=== PATIENT | male | born 1995 | race African-American/Black ===

== ENCOUNTER 2017-03-07 22:36 | Emergency (ER) | payer SELFPAY ==
[2017-03-07] MEDS ORDERED: AZITHROMYCIN 250 MG TABLET PO ONE (22:43)
[2017-03-07] MEDS ORDERED: LIDOCAINE 1% INJ-PF (10 MG/ML) 30 ML SDV INFIL ONE (22:43)
[2017-03-07] MEDS ORDERED: CEFTRIAXONE INJ 250 MG VIAL IM ONE (22:43)
--- NOTE | 2017-03-07 22:47 | ER Document Report ---
ED General - General Stated Complaint: STD CHECK Time Seen by Provider: 03/07/17 22:42 Mode of Arrival: Ambulatory Information source: Patient Notes: 21-year-old male presents with complaints of penile discharge, [facility] the [facility] and was noted to have concerns for chlamydia by diagnosis of physical examination. Patient was not however treated and was told results will come back in 2-3 days. Patient was here with significant other who is a female who is asymptomatic TRAVEL OUTSIDE OF THE [place] IN LAST 30 DAYS: No - HPI Onset: Just prior to arrival Onset/Duration: Sudden Quality of pain: No pain Severity: Mild Pain Level: Denies Associated symptoms: Other Exacerbated by: Denies Relieved by: Denies Similar symptoms previously: Yes Recently seen / treated by doctor: Yes - Related Data Allergies/Adverse Reactions: No Known Drug Allergies Allergy (Verified 06/09/16 01:39) Past Medical History - Social History Smoking Status: Never Smoker Cigarette use (# per day): No Chew tobacco use (# tins/day): No Smoking Education Provided: No Family History: Reviewed & Not Pertinent Review of Systems - Review of Systems Notes: REVIEW OF SYSTEMS: CONSTITUTIONAL : Denies fever, chills, or sweats. Denies recent illness. EENT: Denies eye, ear, throat, or mouth pain or symptoms. Denies nasal or sinus congestion or discharge. Denies throat, tongue, or mouth swelling or difficulty swallowing. CARDIOVASCULAR: Denies chest pain. Denies palpitations or racing or irregular heart beat. Denies ankle edema. RESPIRATORY: Denies cough, cold, or chest congestion. Denies shortness of breath, difficulty breathing, or wheezing. GASTROINTESTINAL: Denies abdominal pain or distention. Denies nausea, vomiting , or diarrhea. Denies blood in vomitus, stools, or per rectum. Denies black, tarry stools. Denies constipation. GENITOURINARY: Denies difficulty urinating Male genitourinary: Penile discharge MUSCULOSKELETAL: Denies back or neck pain or stiffness. Denies joint pain or swelling. SKIN: Denies rash, lesions or sores. HEMATOLOGIC : Denies easy bruising or bleeding. LYMPHATIC: Denies swollen, enlarged glands. NEUROLOGICAL: Denies confusion or altered mental status. Denies passing out or loss of consciousness. Denies dizziness or lightheadedness. Denies headache. Denies weakness or paralysis or loss of use of either side. Denies problems with gait or speech. Denies sensory loss, numbness, or tingling. Denies seizures. PSYCHIATRIC: Denies anxiety or stress. Denies depression, suicidal ideation, or homicidal ideation. ALL OTHER SYSTEMS REVIEWED AND NEGATIVE. PHYSICAL EXAMINATION: GENERAL: Well-appearing, well-nourished and in no acute distress. HEAD: Atraumatic, normocephalic. EYES: Pupils equal round and reactive to light, extraocular movements intact, conjunctiva are normal. ENT: Nares patent, oropharynx clear without exudates. Moist mucous membranes. NECK: Normal range of motion, supple without lymphadenopathy LUNGS: Breath sounds clear to auscultation bilaterally and equal. No wheezes rales or rhonchi. HEART: Regular rate and rhythm without murmurs ABDOMEN: Soft, nontender, nondistended abdomen. No guarding, no rebound. No masses appreciated. Male : Penile discharge Musculoskeletal: Normal range of motion, no pitting or edema. No cyanosis. NEUROLOGICAL: Cranial nerves grossly intact. Normal speech, normal gait. Normal sensory, motor exams PSYCH: Normal mood, normal affect. SKIN: Warm, Dry, normal turgor, no rashes or lesions noted. Dictation was performed using [employer] voice recognition software Course - Re-evaluation Re-evalutation: 03/07/17 22:46 Patient will be treated with antibiotics, lab results pending Otherwise patient looks well has no complaints After performing a Medical Screening Examination, I estimate there is LOW risk for ACUTE APPENDICITIS, BOWEL OBSTRUCTION, ACUTE CHOLECYSTITIS, PERFORATED DIVERTICULITIS, INCARCERATED HERNIA, PANCREATITIS, or PERFORATED ULCER, thus I consider the discharge disposition reasonable. Also, there is no evidence or peritonitis, sepsis, or toxicity. I have reevaluated this patient multiple times and no significant life threatening changes are noted. The patient and I have discussed the diagnosis and risks, and we agree with discharging home with close follow-up with the understanding that symptoms and presentations can change. We also discussed returning to the Emergency Department immediately if new or worsening symptoms occur. We have discussed the symptoms which are most concerning (e.g., bloody stool, fever, changing or worsening pain, intractable vomiting - standard verbal up date) that necessitate immediate return. Discharge - Discharge Clinical Impression: Penile discharge, Concern about STD in male without diagnosis Condition: Stable Disposition: HOME, SELF-CARE Instructions: Chlamydia (COUNTS INCLUDE 234 BEDS AT THE [facility]) Referrals[facility]PT,[facility] [NO LOCAL MD] - Follow up tomorrow
[2017-03-07 22:49] VITALS: BP 142/74
[2017-03-08 00:38] LABS: CHLAM PCR DETECTED (NOT DETECT)
== END 2017-03-07 23:07 | disposition home or self-care (01) ==
LOC: ER 22:36
DX: R36.9 Urethral discharge, unspecified (principal)
CPT/HCPCS: 99283; 96372; 36415; 86592; 87491; 87591; J3490; J0696